=== PATIENT | female | born 1985 | race Two or more races ===

== ENCOUNTER 2022-12-09 15:36 | Emergency (ER) | payer OTHER ==
[~2022-12-09] VITALS: Ht 167.6 cm; Wt 86.2 kg
[2022-12-09] MEDS ORDERED: TUSNEL LIQUID178 ML PO (16:45)
[2022-12-09] MEDS ORDERED: ZITHROMAX500 MG PO (16:45)
[2022-12-09] MEDS ORDERED: MEDROLPACK PO (16:45)
[2022-12-09] MEDS ORDERED: PROAIR RESPICL90 MCG IH (16:45)
== END 2022-12-09 17:04 | disposition home or self-care (01) ==
LOC: ER 15:36
DX: U07.1 COVID-19 (principal); G44.89 Other headache syndrome; A08.8 Other specified intestinal infections